=== PATIENT | female | born 1970 ===

== ENCOUNTER 2021-05-18 06:44 | Day surgery (SDC) | payer OTHER ==
[~2021-05-18 06:44] MED LIST: ACETAMINOPHEN 500 MG TAB PO SCH; CELECOXIB 200 MG CAP PO NR; GABAPENTIN 300 MG CAP PO NR; LACTATED RINGERS 1,000 ML IV SCH; MIDAZOLAM 2 MG/2 ML INJ IV NR; SCOPOLAMINE TRANSDERMAL PATCH 72 HR TD NR
[2021-05-18] MEDS ORDERED: fentaNYL 100 MCG/2 ML INJ ONE ×2 (07:05→08:59)
[2021-05-18] MEDS ORDERED: LIDOCAINE MPF (2%) 20 MG/1 ML VIAL 5 ML ONE (07:05)
[2021-05-18] MEDS ORDERED: ePHEDrine SULFATE 50 MG/1 ML INJ ONE (07:06)
[2021-05-18] MEDS ORDERED: propofoL 200 MG/20 ML VIAL IV ONE (07:06)
[2021-05-18] MEDS ORDERED: LIDOCAINE (1%) 10 MG/1 ML VIAL 20 ML MDV ONE (07:34)
[2021-05-18] MEDS ORDERED: BUPIVACAINE/PF (0.25%) 2.5 MG/ML 30 ML VIAL INFILTRATI ONE (07:34)
[2021-05-18] MEDS ORDERED: EPINEPHrine 30 MG/30 ML INJ IV ONE (07:35)
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
--- NOTE | 2021-05-18 07:38 | Anesthesia Day of Surgery ---
Anesthesia Day of Surgery - Day of Surgery Patient Examined: Yes Patient H&P Reviewed: Yes Patient is NPO: Yes
[2021-05-18] MEDS ORDERED: ONDANSETRON 4 MG/2 ML INJ IV PRN (08:00)
[2021-05-18] MEDS ORDERED: oxyCODONE /ACETAMINOPHEN 5-325MG TAB PO PRN (08:00)
[2021-05-18] MEDS ORDERED: ceFAZolin/Water 2 GM/20 ML 2 GM/20 ML SYRINGE IV NR (08:00)
[2021-05-18] MEDS ORDERED: ceFAZolin 1 GM VIAL ONE (08:14)
[2021-05-18] MEDS ORDERED: EPINEPHrine 1 MG/10 ML SYRINGE IV ONE (08:38)
[2021-05-18] MEDS ORDERED: .SODIUM CHLORIDE 0.9% IRRIG SOLN 3000 ML IR ONE (08:38)
[2021-05-18] MEDS ORDERED: ONDANSETRON 4 MG/2 ML INJ ONE (08:50)
[2021-05-18] MEDS ORDERED: dexAMETHasone 20 MG/5 ML VIAL ONE (08:50)
--- NOTE | 2021-05-18 09:06 | Short Stay Summary ---
Short Stay Documentation Date of service: 05/18/21 - History H&P: obtained from office - Allergies and Medications Current Medications: Allergies No Known Allergies Allergy (Verified 05/11/21 10:20) Home Medications Medication Instructions Recorded Confirmed Last Taken Type Depo-Provera 05/10/21 Unknown History Iron 05/10/21 Unknown History Lisinopril 05/10/21 Unknown History Xanax TAB 05/10/21 Unknown History Active Medications Acetaminophen (Acetaminophen 500 Mg Tab) 1,000 mg PO PREOP JOSEE Stop: 05/18/21 19:00 Last Admin: 05/18/21 07:30 Dose: 1,000 mg Documented by: Celecoxib (Celecoxib 200 Mg Cap) 200 mg PO PREOP NR Stop: 05/18/23 23:59 Last Admin: 05/18/21 07:30 Dose: 200 mg Documented by: Gabapentin (Gabapentin 300 Mg Cap) 300 mg PO PREOP NR Stop: 05/18/21 23:59 Last Admin: 05/18/21 07:30 Dose: 300 mg Documented by: Hydromorphone HCl (Hydromorphone 1 Mg/1 Ml Inj) 0.5 mg IV Q10MIN PRN PRN Reason: Pain , Severe (7-10) Stop: 05/18/21 17:00 Lactated Ringer's (Lactated Ringers) 1,000 mls @ 100 mls/hr IV DIRECT JOSEE Stop: 05/18/21 23:59 Last Admin: 05/18/21 07:23 Dose: 100 mls/hr Documented by: Cefazolin Sodium 3 gm/ Sodium (Chloride) 100 mls @ 100 mls/30 min IV PREOP NR Stop: 05/18/21 15:00 Midazolam HCl (Midazolam 2 Mg/2 Ml Inj) 2 mg IV PREOP NR Stop: 05/18/21 23:59 Last Admin: 05/18/21 07:30 Dose: 2 mg Documented by: Ondansetron HCl (Ondansetron 4 Mg/2 Ml Inj) 4 mg IV ONCE PRN PRN Reason: Nausea And Vomiting Stop: 05/18/21 17:00 Oxycodone/Acetaminophen (Oxycodone /Acetaminophen 5-325mg Tab) 1 tab PO ONCE PRN PRN Reason: Pain, Moderate (4-6) Stop: 05/18/21 17:00 Scopolamine (Scopolamine Transdermal Patch 72 Hr) 1 each TD PREOP NR Stop: 05/18/21 23:59 Last Admin: 05/18/21 07:30 Dose: 1 each Documented by: - Brief post op/procedure progress note Date of procedure: 05/18/21 Pre-op diagnosis: left knee pain medial meniscus tear Post-op diagnosis: same Procedure: left knee arthroscopy partial medial meniscectomy Anesthesia: GETA Findings: complex tear posterior horn medial meniscus, grade II articular cartilage wear of the weightbearing surface of the medial femoral condyle measuring approximately 1 inch in circumference Surgeon: PO ESPINAL Estimated blood loss: minimal Pathology: none Condition: stable - Hospital course Hospital course: no perioperative complications - Disposition Condition at discharge: Good Disposition: 01 HOME / SELF CARE / HOMELESS - Discharge Diagnoses (1) Tear of left meniscus as current injury Status: Acute Qualifiers: Encounter type: subsequent encounter Qualified Code(s): S83.207D - Unspecified tear of unspecified meniscus, current injury, left knee, subsequent encounter Short Stay Discharge Plan Follow up with: PRIMARY CAREMD [Primary Care Provider] - 7 Days
[2021-05-18] MEDS: HYDROmorphone 1 MG/1 ML INJ IV PRN ×2 (09:17→09:27)
[2021-05-18 10:01] VITALS: BP 139/77
--- NOTE | 2021-05-18 10:37 | Post Anesthesia Evaluation ---
- Post Anesthesia Evaluation Patient Participated: Yes Airway Patent: Yes Stable Respiratory Function: Yes Nausea/Vomiting: No Temp > 96.8F: Yes Pain Manageable: Yes Adequeate Hydration: Yes Anesthesia Complications: No
--- NOTE | 2021-05-18 12:17 | Operative Report ---
DATE OF SURGERY: 05/18/2021 PREOPERATIVE DIAGNOSES: Persistent left knee pain, medial meniscus tear. POSTOPERATIVE DIAGNOSIS: Persistent left knee pain with mechanical symptoms, large complex tear located in the posterior horn of the medial meniscus, grade II articular cartilage loss going approximately 4 cm in circumference on the weightbearing portion of the medial femoral condyle. OPERATIVE PROCEDURES: Left knee arthroscopy, partial medial meniscectomy. SURGEON: Rodney Flor MD MATH INTERVENTIONIST: None. ANESTHESIA: General/LMA. PREOPERATIVE ANTIBIOTICS: Ancef 3 grams IV within 1 hour of skin incision. DVT PROPHYLAXIS: Open to thigh compression stockings and SCD pumps to the nonoperative right lower extremity. OPERATIVE COMPLICATIONS: None. ESTIMATED BLOOD LOSS: Minimal. OPERATIVE HISTORY AND PHYSICAL: This is a 50-year-old female who has had persistent progressively worsening left knee pain with mechanical symptoms with marked loss of function, which has failed to improve despite extensive nonoperative treatment. MRI was performed, which was positive for a large complex tear located in the posterior horn of the medial meniscus. Surgical and nonsurgical treatment alternatives were discussed including risks and benefits of both and the patient opted to proceed with operative intervention. This will entail a left knee arthroscopy, partial medial meniscectomy and surgery as indicated, the risk of which were discussed include exclusive of infection, blood loss, nerve damage, loss of range of motion and persistent pain. The patient understood, all questions were answered and she wished to proceed with operative intervention. OPERATIVE PROCEDURE: The patient was seen in the preoperative holding area, at which point, informed consent was reviewed and appropriate left lower extremity was identified and then marked. The patient was then brought back to the operating room and placed supine on the operating table, at which point, general anesthesia was administered. An LMA tube was inserted. After confirmation of adequate general anesthesia and placement of LMA tube, we then made sure all bony prominences were well padded and that there were no wrinkles in the compression stockings on the right lower extremity. An SCD was applied to the right lower extremity. We made sure that all bony prominences were well padded. The arms were secured in neutral position with aid of the well arm boards and the was secured in a nice neutral position as well. A time-out was called and the appropriate left lower extremity was identified, which again had been marked in preoperative holding area. We began the procedure by first making a standard anterolateral portal with a #11 blade. Once the portal was established, the cannula with a blunt trocar was inserted into the intraarticular aspect of the knee joint. This without difficulty or damage to articular cartilage. Once in place, arthroscopic camera was placed in the medial compartment. We established our anteromedial portal by first inserting an 18-gauge spinal needle under direct arthroscopic visualization and was confirmed to be in appropriate position. A #11 blade was then used to establish an anterior medial portal again under direct arthroscopic visualization. Once completed, the blunt trocar was inserted along the portal site followed by an arthroscopic probe. We began our diagnostic arthroscopy in the medial compartment. The patient had a large complex tear located in the posterior horn of the medial meniscus. There was a grade II articular cartilage loss in the weightbearing portion of the medial femoral condyle measuring approximately 4 cm in circumference. There were no tears in the anterior horn of the medial meniscus. Inspection of the notch with the ACL and PCL to be intact and stable when probed. Lateral compartment showed there to be no tears in the anterior or posterior horn of the lateral meniscus. There was normal articular cartilage of lateral femoral condyle and lateral tibial plateau. There was a normal popliteus, which was stable when probed. Inspection of the medial and lateral gutters showed these to be free and clear of all loose bodies. Inspection of patellofemoral joint showed normal cartilage and normal patellofemoral tracking. Inspection of suprapatellar pouch showed to be no loose bodies present. The knee was then placed in the posterior aspect of the knee, adjacent to cruciate ligaments and femoral condyle. Once in the posterior aspect of the knee, there were no root tear of the menisci. There were no loose bodies in the posterior aspect of the knee. Arthroscope was then placed back in the medial compartment. I performed a partial medial meniscectomy in standard fashion using a series of basket punches and 4.0 meniscal shaver on the posterior horn of the medial meniscus. This involved the white-white as well as the white-red as well as a portion of the red-red zone. The tear was irreparable. Once completed, we were down to nice smooth, stable, healthy remaining border of the posterior horn of the medial meniscus. The arthroscopic pump was turned off to make sure there was good hemostasis achieved with the Flor and NephFirst Wave wearable for ablation wand. Once this was confirmed, the knee was infiltrated with fluid again. We inspected all three compartments, medial and lateral gutter, again confirming that all bleeding had been controlled and there were no loose bodies present or meniscal fragments. Once confirmed, the extraneous fluid was suctioned from the knee using the arthroscopic cannula. Following this, all the arthroscopic instrumentation was removed. The 2 portal sites were then closed with 3-0 nylon in a simple fashion. Adaptic, 4 x 4's, ABD, Renato wrap was applied. The patient was then awakened from general anesthesia without known complication and was taken to recovery room in stable condition and standard postoperative orders were written. TID: [id number] RECEIPT: [id number] QUINCY/SHAVONNE/LIZETH
== END 2021-05-18 10:50 | disposition home or self-care (01) ==
LOC: OR 06:44
PROVIDERS: ATTEND Orthopaedic Surgery
DX: S83.232A Complex tear of medial meniscus, current injury, left knee, initial encounter (principal); M25.562 Pain in left knee; E66.9 Obesity, unspecified; D64.9 Anemia, unspecified; I10 Essential (primary) hypertension; K21.9 Gastro-esophageal reflux disease without esophagitis; M19.90 Unspecified osteoarthritis, unspecified site; F32.9 Major depressive disorder, single episode, unspecified; F41.9 Anxiety disorder, unspecified; Z87.440 Personal history of urinary (tract) infections; Z90.49 Acquired absence of other specified parts of digestive tract; Z98.890 Other specified postprocedural states; Z79.899 Other long term (current) drug therapy; X58.XXXA Exposure to other specified factors, initial encounter; Y93.89 Activity, other specified; Y92.89 Other specified places as the place of occurrence of the external cause; Y99.8 Other external cause status
CPT/HCPCS: 29881; 81025; J0171; J0690; J1100; J1170; J2250; J2405; J2704; J3010; J3490; J7120